=== PATIENT | male | born 1985 | race Caucasian/White ===

== ENCOUNTER 2021-02-13 23:32 | Emergency (ER) | payer OTHER ==
[2021-02-13 23:47] VITALS: BP 145/83; PULSE 101; RESP 20; TEMP 98.1
[2021-02-14] MEDS ORDERED: ACET/COD 300 MG/30 MG STARTER PACK 6 TAB BTL PO STA (00:12)
[2021-02-14] MEDS ORDERED: IBUPROFEN 600 MG TAB PO STA (00:12)
[2021-02-14] MEDS ORDERED: LIDOCAINE 1% INJ 10MG/ML (20 ML MDV) SQ ONE (00:12)
--- NOTE | 2021-02-14 00:27 | ED ---
Skin/Abscess/FB HPI - General Chief complaint: Skin/Abscess/Foreign Body Stated complaint: Armpit Abscess/pain Time Seen by Provider: 02/13/21 23:53 Source: patient Mode of arrival: ambulatory Limitations: no limitations - History of Present Illness Initial comments: 35 year-old male patient present for evaluation of abscess to the left axilla. States he has been having trouble over the last couple of months. State he recently had an abscess drained in [place]. States the current abscess has been present for the last two days. States it is tender to touch. Denies any drainage. He denies any fever or chills. Denies any other areas of concern. - Related Data Previous Rx's Medication Instructions Recorded Sulfamethoxazole/Trimethoprim 1 each PO BID #20 tablet 02/14/21 [Bactrim DS 800-160 mg] Allergies Allergy/AdvReac Type Severity Reaction Status Date / Time acetaminophen [From Vicodin] Allergy Rash/Hives Verified 02/13/21 23:47 hydrocodone [From Vicodin] Allergy Rash/Hives Verified 02/13/21 23:47 Review of Systems ROS Statement: Those systems with pertinent positive or pertinent negative responses have been documented in the HPI. ROS Other: All systems not noted in ROS Statement are negative. Past Medical History Past Medical History: Hypertension Additional Past Medical History / Comment(s): tremors, vitamin D defiency History of Any Multi-Drug Resistant Organisms: None Reported Past Surgical History: No Surgical Hx Reported Past Psychological History: No Psychological Hx Reported Smoking Status: Current every day smoker Past Alcohol Use History: Occasional Past Drug Use History: None Reported General Exam Limitations: no limitations General appearance: alert, in no apparent distress, other (This is a well- developed, well-nourished adult male patient in no acute distress. No signs upon presentation are temperature 98.1F, pulse 101, respirations 20, blood pressure 145/83, pulse ox 96% on room air.) Respiratory exam: Present: normal lung sounds bilaterally. Absent: respiratory distress, wheezes, rales, rhonchi, stridor Cardiovascular Exam: Present: regular rate, normal rhythm, normal heart sounds. Absent: systolic murmur, diastolic murmur, rubs, gallop, clicks Extremities exam: Present: full ROM, normal capillary refill, other (There is 2cm abscess noted to the left axilla. Overlying erythema. Tenderness. No drainage.). Absent: tenderness, pedal edema, joint swelling, calf tenderness Neurological exam: Present: alert, oriented X3, CN II-XII intact Psychiatric exam: Present: normal affect, normal mood Skin exam: Present: warm, dry, intact, normal color. Absent: rash Course Vital Signs 02/13/21 23:42 Temperature 98.1 F Pulse Rate 101 H Respiratory 20 Rate Blood Pressure 145/83 O2 Sat by Pulse 96 Oximetry Procedures - Incision & Drainage Consent Obtained: verbal consent Indication: Abscess Site: other (left axilla) Size (cm): 2 Anesthetic Used: lidocaine 1% Amount (mLs): 3 Scalpel Used: #11 I&D Drainage Obtained: Blood Culture Obtained?: No Patient Tolerated Procedure: well, no complications Medical Decision Making - Medical Decision Making 35-year-old male patient presents to the emergency department today for evaluation of abscess to the left axilla. Patient had one drained a couple of weeks ago. Physical examination did reveal 2 cm abscess with induration. Not much fluctuance. There is overlying erythema. Did attempt drainage, no purulent output. He'll be discharged with antibiotics. Instructed to apply warm compresses. Instructed to follow-up with the primary care physician for recheck in 1-2 days. Return parameters discussed in detail. He verbalizes understanding and agrees this plan. Case discussed with my attending Dr. Chavarria. Disposition Clinical Impression: Abscess of left axilla Disposition: HOME SELF-CARE Condition: Good Instructions (If sedation given, give patient instructions): Abscess Incision and Drainage (ED) Additional Instructions: Apply warm compresses to the left armpit 4-5 times per day at least 10 minutes at a time. Complete antibiotic prescription in full. Follow-up with the primary care physician for recheck in 1-2 days. Return for any new, worsening, or concerning symptoms. Prescriptions: Sulfamethoxazole/Trimethoprim [Bactrim DS 800-160 mg] 1 each PO BID #20 tablet Is patient prescribed a controlled substance at d/c from ED?: No Referrals: None,Stated [Primary Care Provider] - 1-2 days Time of Disposition: 01:02
== END 2021-02-14 01:27 | disposition home or self-care (01) ==
LOC: EC 23:32
DX: L02.412 Cutaneous abscess of left axilla (principal); I10 Essential (primary) hypertension; F17.200 Nicotine dependence, unspecified, uncomplicated; Z88.5 Allergy status to narcotic agent
CPT/HCPCS: 10060; 99282